=== PATIENT | female | born 1945 | race Caucasian/White ===

== ENCOUNTER 2017-01-19 07:20 | Day surgery (SDC) | payer MEDICARE ==
--- NOTE | 2017-01-11 21:26 | HP ---
PREOPERATIVE HISTORY AND PHYSICAL: DATE OF SURGERY/ADMISSION: 01/19/17 DATE OF OFFICE VISIT/ENCOUNTER: 01/11/17 ATTENDING SURGEON: Kim Monae MD (DICTATED BY RAUL LEE) PROCEDURE: Left thumb trigger finger release. CHIEF COMPLAINT: Left thumb triggering. HISTORY OF PRESENT ILLNESS: This is a 71-year-old female who complains of pain and inability to flex her left thumb that has been ongoing now since approximately June of 2016. She does not recall any injury. She denies any numbness or tingling. She received a cortisone injection back in July of 2016, which was quite helpful; however, the symptoms have now returned and she is interested in pursuing surgical intervention at this time in the form of the trigger finger release for her left thumb. PAST MEDICAL HISTORY: Hypercholesterolemia. PAST SURGICAL HISTORY: Tonsillectomy. CURRENT MEDICATIONS: 1. Aspirin 325 mg daily. 2. Calcium 500 plus D daily. 3. Eye vitamin. 4. Lipitor 20 mg one and a half tab daily. 5. Loratadine 10 mg daily. 6. Multivitamins daily. ALLERGIES: SULFA causes hives. FAMILY MEDICAL HISTORY: Significant for stroke. SOCIAL HISTORY: The patient is retired from [employer]. She is a former smoker. She quit approximately 22 years ago. Prior to that, she smoked a pack a day. She denies recreational drug use and does admit to alcohol use on occasions. REVIEW OF SYSTEMS: General: Negative for fevers, chills, or night sweats. No known anesthesia problems. HEENT: Negative for headache, lightheadedness, or syncopal episodes. Integumentary: Negative for abrasions, lesions, or open wounds. Cardiothoracic: Negative for hypertension, chest pain, palpitations, or edema. Pulmonary: Negative for shortness of breath with exertion, chronic cough, COPD. GI: Negative for nausea, vomiting, diarrhea, constipation or GERD. : Negative for nocturia, urinary frequency, urgency, history of UTIs, or kidney problems. Musculoskeletal: Positive for current complaint. Negative for chronic or intermittent back pain or history of fractures. Neurological: Negative for paresthesias, numbness, history of seizures, stroke , or epilepsy. Endocrine: Negative for diabetes or thyroid issues. Hematologic : Negative for easy bruising, anemia, excessive bleeding, or history of DVT. Infectious Disease: Negative for history of MRSA, hepatitis C, or HIV. PHYSICAL EXAMINATION GENERAL: Well-developed, well-nourished 71-year-old female, in no acute distress. VITAL SIGNS: Height 5 feet 3 inches, weight 172 pounds, pulse rate 71, blood pressure 128/68. HEENT: Normocephalic, atraumatic. Pupils are equal, round, and reactive to light and accommodation. Extraocular movements are intact. NECK: Supple. No palpable lymph nodes. Throat is clear. PULMONARY: Lungs are clear to auscultation bilaterally. No wheezes, rales, or rhonchi. CARDIOVASCULAR: Regular rate and rhythm. S1 and S2. No murmurs, rubs, or gallops. No edema. ABDOMEN: Positive bowel sounds, soft, nontender. NEUROLOGIC: Alert and oriented x3. Cranial nerves II through XII are intact. Sensation is intact to light touch. Peripheral vascular 2+ radial and ulnar pulses. Negative Octavio test. MUSCULOSKELETAL: On exam of her left hand and her thumb in particular, she has tenderness at A1 juan jose of the left thumb. She cannot flex her thumb past about 20 degrees. She had full extension. 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 Neurovascular function is intact. ASSESSMENT: Left thumb trigger thumb. PLAN: The patient is scheduled to undergo a left thumb trigger finger release with Dr. Monae on 01/19/17. She will return to the office in 10 to 14 days postop for followup and suture removal. A prescription for Ultracet was e- scribed to the patient's pharmacy for postoperative pain management. RAUL LEE [id number]/[facility] #: [id number] JOSS
[~2017-01-19 07:20] MED LIST: Buffered Lidocaine 1% SYR 3ML* 3 ML/SYR SYRINGE INTRADERM ONE; Famotidine IV* 10 MG/ML 2 ML (20 mg) IV ONE
[2017-01-19] MEDS ORDERED: Famotidine IV* 10 MG/ML 2 ML (20 mg) ONE (07:27)
[2017-01-19] MEDS ORDERED: Lidocaine 1% INJ* 10 MG/ML 30 ML SDV ONE (07:51)
[2017-01-19] MEDS ORDERED: fentaNYL* 50 MCG/ML 2 ML VIAL (100 MCG VIAL) ONE (08:06)
[2017-01-19] MEDS ORDERED: Midazolam* 1 MG/ML 5 ML VIAL (5 MG) ONE (08:06)
[2017-01-19] MEDS ORDERED: oxyCODONE TAB* 5 MG TAB PO PRN (08:24)
[2017-01-19] MEDS ORDERED: Acetaminophen TAB* 325 MG PO PRN (08:24)
[2017-01-19] MEDS ORDERED: DiMENhydriNATE IV* 50 MG/ML VIAL IV PUSH PRN (08:24)
[2017-01-19] MEDS ORDERED: Ondansetron INJ* 2 MG/ML VIAL ONE (08:29)
[2017-01-19] MEDS ORDERED: Lidocaine 2% PF * 5 ML VIAL ONE (08:29)
[2017-01-19] MEDS ORDERED: Ketorolac INJ* 30 MG/ML 1 ML VIAL ONE (08:29)
[2017-01-19] MEDS ORDERED: Propofol* 10 MG/ML 20 ML BTL IV PUSH ONE (08:29)
[2017-01-19 10:05] VITALS: BP 128/71
--- NOTE | 2017-01-19 21:18 | OP ---
DATE OF OPERATION: 01/19/17 [facility] DATE OF : 41 SURGEON: Kim Monae MD COMPLIANCE ANALYST: RAUL Kennedy ANESTHESIOLOGIST: Shani Vega MD ANESTHESIA: Local MAC. PRE-OP DIAGNOSIS: Left trigger thumb. POST-OP DIAGNOSIS: Left trigger thumb. OPERATIVE PROCEDURE: Left trigger thumb release. INDICATIONS: Yue is a 71-year-old female who has clicking and locking of her left thumb. She presents for left trigger thumb release after failing conservative treatment. ESTIMATED BLOOD LOSS: Zero. TOURNIQUET TIME: 5 minutes. DESCRIPTION OF PROCEDURE: The patient was brought to the operating room, was given a sedation anesthetic, and a local infiltration of 10 cc of 1% plain lidocaine at the MP flexion crease of the left thumb. The skin of her left hand and forearm was prepped and draped in the usual sterile fashion. The hand and forearm were exsanguinated and the tourniquet elevated to 250 mmHg. A transverse incision was made, centered over the A1 juan jose of the left thumb, dissected bluntly through the subcutaneous tissue. The digital neurovascular bundles were retracted by the director surgical, Lola Leslie. The A1 juan jose was incised longitudinally, completely releasing the FPL tendon, which was in good condition. The wound was irrigated and the skin edges reapproximated with 4-0 nylon suture. The wound was dressed with Xeroform, 4x4, Webril, and an Tee wrap. The patient tolerated the procedure well and was brought to the recovery room in good condition. [id number]/[facility] #: [id number] MTDD
== END 2017-01-19 09:51 | disposition home or self-care (01) ==
LOC: OREAST 07:20
PROVIDERS: ATTEND Orthopaedic Surgery
DX: M65.312 Trigger thumb, left thumb (principal); I10 Essential (primary) hypertension; E78.5 Hyperlipidemia, unspecified; Z87.891 Personal history of nicotine dependence; M19.90 Unspecified osteoarthritis, unspecified site
CPT/HCPCS: J1885; J2001; J2250; J2405; J2704; J3010

== ENCOUNTER 2017-04-03 08:05 | Emergency (ER) | payer MEDICARE ==
[2017-04-03 08:14] VITALS: BP 150/66
--- NOTE | 2017-04-03 08:56 | UC ---
Respiratory Complaint HPI - HPI Summary HPI Summary: PT HAS BEEN COUGHING FOR ABOUT 4 WEEKS. SAW PCP 2 WEEKS AGO AND WAS TX WITH 3 DAYS OF AZITH. DID NOT GET BETTER SO WENT BACK 5 DAYS AGO AND TX WITH MEDROL DOSE MAXINE. THOUGHT SHE WAS GETTING BETTER BUT YESTERDAY STARTED COUGHING A LOT AGAIN. BRINGING UP THICK WHITE PHLEGM. HAS INHALER AT HOME. NO FEVER. - History of Current Complaint Chief Complaint: UCRespiratory Stated Complaint: COUGH Time Seen by Provider: 04/03/17 08:18 Hx Obtained From: Patient Onset/Duration: Gradual Onset, Lasting Weeks, Still Present Timing: Constant Severity Initially: Moderate Severity Currently: Moderate Pain Intensity: 0 Pain Scale Used: 0-10 Numeric Character: Cough: Productive Aggravating Factors: Nothing Alleviating Factors: Nothing Associated Signs And Symptoms: Positive: URI - Allergies/Home Medications Allergies/Adverse Reactions: Allergies Allergy/AdvReac Type Severity Reaction Status Date / Time Sulfa Antibiotics Allergy Rash And Verified 04/03/17 08:11 Itching Home Medications: Home Medications Cholecalciferol TAB* [Vitamin D TAB*] 1,000 unit PO DAILY 04/03/17 [History Confirmed 04/03/17] PMH/Surg Hx/FS Hx/Imm Hx Previously Healthy: Yes - Surgical History Surgical History: Yes Surgery Procedure, Year, and Place: TONSILLECTOMY CHILD - Family History Known Family History: Negative: Hypertension - Social History Alcohol Use: Occasionally Substance Use Type: None Smoking Status (MU): Former Smoker Amount Used/How Often: 1 PPD When Did the Patient Quit Smoking/Using Tobacco: 1996 Review of Systems Constitutional: Negative Respiratory: Cough Cardiovascular: Negative Gastrointestinal: Negative Genitourinary: Negative All Other Systems Reviewed And Are Negative: Yes Physical Exam Triage Information Reviewed: Yes Appearance: Well-Appearing, No Pain Distress, Well-Nourished Vital Signs: Initial Vital Signs Temp 97.9 F 04/03/17 08:12 Pulse 65 04/03/17 08:12 Resp 16 04/03/17 08:12 BP 150/66 04/03/17 08:12 Pulse Ox 99 04/03/17 08:12 Vital Signs Reviewed: Yes Eyes: Positive: Conjunctiva Clear ENT: Positive: Hearing grossly normal, Pharynx normal, TMs normal Neck: Positive: Supple, Nontender, No Lymphadenopathy Respiratory: Positive: No respiratory distress, No accessory muscle use, Wheezing - INTERMITTENT WHEEZE BILATERAL MID LUNGS Cardiovascular Exam: Normal Abdomen Description: Positive: Soft Musculoskeletal: Positive: No Edema Neurological: Positive: Alert Psychological: Positive: Age Appropriate Behavior Skin: Negative: rashes UC Diagnostic Evaluation - Laboratory O2 Sat by Pulse Oximetry: 99 Respiratory Course/Dx - Differential Dx/Diagnosis Provider Diagnoses: ACUTE BRONCHITIS Discharge - Discharge Plan Condition: Stable Disposition: HOME Prescriptions: Doxycycline (Monohydrate) [Doxycycline Monohydrate] 1 cap PO BID #14 cap predniSONE TAB* [Deltasone TAB*] 50 mg PO DAILY #5 tab Patient Education Materials: Acute Bronchitis (ED) Referrals: Lizy Hodges MD [Primary Care Provider] - If Needed Additional Instructions: WILL TREAT YOUR PERSISTENT SYMPTOMS WITH DOXY AND AN ADDITIONAL COURSE OF STEROIDS. CONTINUE TO USE YOUR ALBUTEROL NEEDED AND TAKE A DAILY ANTIHISTAMINE TO COVER FOR ANY ALLERGIC COMPONENT. SEEK FOLLOW-UP WITH YOUR PCP IF YOU ARE NOT IMPROVING EXPECTED.
== END 2017-04-03 08:45 | disposition home or self-care (01) ==
LOC: UCEAST 08:05
DX: J20.9 Acute bronchitis, unspecified (principal); Z88.2 Allergy status to sulfonamides; Z87.891 Personal history of nicotine dependence
CPT/HCPCS: 99212; G0463